=== PATIENT | female | born 1945 | race Two or more races ===

== ENCOUNTER 2017-07-23 19:37 | Emergency (ER) | payer MEDICARE, MEDICAID ==
[~2017-07-23] VITALS: Ht 172.7 cm; Wt 72.6 kg
[2017-07-23] MEDS ORDERED: ONDANSETRON HCL/PF 4 MG/2 ML VIAL ONE (19:49)
[2017-07-23] MEDS ORDERED: MORPHINE SULFATE INJ 4 MG/ML DISP.SYRIN ONE ×2 (19:49→22:18)
[2017-07-23] MEDS ORDERED: MORPHINE SULFATE INJ 2 MG/ML DISP.SYRIN IV ONE ×2 (20:00→22:00)
[2017-07-23] MEDS ORDERED: ONDANSETRON HCL/PF 4 MG/2 ML VIAL IVP ONE (20:00)
[2017-07-23] MEDS ORDERED: IV NS 0.9% 1,000 ML BAG IV ONE (20:00)
--- NOTE | 2017-07-23 20:00 | NUR ---
71 yo female bb ambulance from [facility], patient a/o x 3, assisted to er bed by emt. patient c/o lower abd pain, aching like non radiating with nausea. patient gownened, placed on bilingual administrative assistant. awaiting orders from provider, will continue to monitor
[2017-07-23 20:05] LABS: BASOPHILS % (AUTO) 0.4 % (0.0-2.0); EOSINOPHILS # (AUTO) 0.1 /CMM (0.0-0.7); EOSINOPHILS % (AUTO) 0.9 % (0.0-6.0); HEMATOCRIT 37 % (33-45); HEMOGLOBIN 13.4 g/dL (11.5-14.8); LYMPHOCYTES # (AUTO) 0.6 /CMM (0.8-4.8); LYMPHOCYTES % (AUTO) 9.8 % (20.0-44.0); MEAN CORPUSCULAR HEMOGLOBIN 33 PG (26.0-33.0); MEAN CORPUSCULAR HGB CONC 36 g/dl (31.0-36.0); MEAN CORPUSCULAR VOLUME 91 fL (82-100); MONOCYTES # (AUTO) 0.1 /CMM (0.1-1.30); MONOCYTES % (AUTO) 1.7 % (2.0-12.0); NEUTROPHILS # (AUTO) 5.4 /CMM (1.8-8.9); NEUTROPHILS % (AUTO) 87.2 % (43.0-81.0); PLATELET COUNT (AUTO) 145 /CMM (150-450); RDW COEFFICIENT OF VARIATION 13.1 (11.5-15.0); RED BLOOD CELL COUNT(AUTO) 4.07 MIL/uL (4.0-5.2); WHITE BLOOD COUNT (AUTO) 6.2 K/uL (4.3-11.0)
--- NOTE | 2017-07-23 20:05 | NUR ---
20g left hand iv started, blood sample obtained and sent to lab. medicated pt as ordered
[2017-07-23 20:15] LABS: CALCIUM, SERUM 9.3 mg/dL (8.5-10.1); CREATININE 0.6 mg/dL (0.6-1.3)
[2017-07-23 20:19] LABS: INR 0.92 (0.87-1.13)
[2017-07-23 20:20] LABS: ALBUMIN 3.9 g/dL (3.4-5.0); BILIRUBIN,DIRECT 0.1 mg/dL (0.0-0.2); BILIRUBIN,TOTAL 0.7 mg/dL (0.2-1.0); TOTAL PROTEIN, SERUM 7.3 g/dL (6.4-8.2)
--- NOTE | 2017-07-23 21:09 | NUR ---
VITAL SIGNS UPDATED.
--- NOTE | 2017-07-23 21:30 | NUR ---
ATTEMPTED TO PAGE DR BURT SEVERAL TIMES FOR CONSULT. LINE DOES NOT CONNECT TO PAGER.
--- NOTE | 2017-07-23 21:38 | NUR ---
PAGED DR THOMPSON FOR CARDIOTHORACIC SURGERY CONSULT
--- NOTE | 2017-07-23 22:00 | NUR ---
SPOKE WITH SILVIANO AT [facility] FOR HIGHER LEVEL OF CARE TRANSFER. PER SILVIANO SHE IS TRYING TO GET IN TOUCH WITH HER PHYSICIAN AND WILL CALL BACK.
--- NOTE | 2017-07-23 22:35 | NUR ---
CALLED AMANDA AT [facility] AND PRESENTED CASE FOR HIGHER LEVEL OF CARE TRANSFER FOR CARDIOTHORACIC SURGERY. TRANSFERRED CALL TO DR SCRUGGS AND WILL FAX FACE SHEET, IMAGING, AND LABS TO [phone].
--- NOTE | 2017-07-23 22:49 | NUR ---
PATIENT IS ACCEPTED AT [facility]. ACCEPTING MD DR SÁNCHEZ - [facility] WE ARE RESPONSIBLE FOR ARRANGING TRANSPORT PATIENT NEEDS AN NG TUBE PRIOR TO TRANSFER NUMBER FOR REPORT [id number]
--- NOTE | 2017-07-23 22:56 | NUR ---
CALLED YENNY FOR BLS TRANSPORT TO [facility]. ETA 45 MINUTES TO 1 HOUR.
--- NOTE | 2017-07-23 23:09 | NUR ---
REINALDO BRADY TOOK REPORT AT [facility]
[2017-07-23] MEDS ORDERED: LIDOCAINE VISCOUS 2% UD 15 ML UDC ONE (23:27)
[2017-07-23] MEDS ORDERED: LORAZEPAM INJ 2 MG/ML VIAL ONE (23:28)
[2017-07-23] MEDS ORDERED: LIDOCAINE VISCOUS 2% UD 15 ML UDC MM ONE (23:30)
[2017-07-23] MEDS ORDERED: LORAZEPAM INJ 2 MG/ML VIAL IV ONE (23:30)
--- NOTE | 2017-07-23 23:30 | NUR ---
PLACED [facility] TRIP# [id number] ON WILL CALL
--- NOTE | 2017-07-23 23:45 | NUR ---
SPOKE WITH AMANDA AT [facility] AND INFORMED THAT NG TUBE WAS UNABLE TO BE PLACED IN OUR ED. PER AMANDA, HE INFORMED DR SÁNCHEZ AND HE IS OK WITH PATIENT BEING SENT WITHOUT IT
--- NOTE | 2017-07-23 23:46 | NUR ---
CALLED YENNY TO REACTIVATE CALL. ETA 60 MINUTES.
--- NOTE | 2017-07-24 | NUR ---
ATTEMPTED NG WITHOUT SUCCESSFUL PLACEMENT, HAD OTHER RN ATTEMPT WITHOUT SUCCESSFUL PLACEMENT. CALLED MD SÁNCHEZ AT [facility], PER MD SÁNCHEZ, DO NOT ATTEMPT NG TUBE PLACEMENT ANYMORE, THEY WILL TRY AT [facility]
[2017-07-24] MEDS ORDERED: ONDANSETRON HCL/PF 4 MG/2 ML VIAL ONE (00:38)
[2017-07-24] MEDS ORDERED: MORPHINE SULFATE INJ 4 MG/ML DISP.SYRIN ONE (00:38)
[2017-07-24 00:43] VITALS: BP 124/64
--- NOTE | 2017-07-24 00:44 | NUR ---
MEDICATED PT ORDERED; 4MG MORPHINE, 4 MG ZOFRAN
--- NOTE | 2017-07-24 00:44 | NUR ---
PATIENT WAS TRANSPORTED BY EMT
[2017-07-24] MEDS ORDERED: ONDANSETRON HCL/PF 4 MG/2 ML VIAL IVP ONE (01:00)
[2017-07-24] MEDS ORDERED: MORPHINE SULFATE INJ 2 MG/ML DISP.SYRIN IV ONE (01:00)
== END 2017-07-24 00:46 | disposition short-term general hospital (02) ==
LOC: ER 19:39
DX: K31.89 Other diseases of stomach and duodenum (principal)
CPT/HCPCS: 36415; 71045-TC; 80048-TC; 80076-TC; 83605-TC; 83690-TC; 85025-TC; 85730-TC; 87040-TC; A4606; J2060; J2270; J2405; Z7610

== ENCOUNTER 2017-12-18 14:00 | Outpatient (CLI) | payer MEDICARE, MEDICAID | END 2017-12-18 23:59 | disposition home or self-care (01) | LOC: WOU 14:00 | PROVIDERS: ATTEND Surgery | DX: R10.9 Unspecified abdominal pain (principal); Z87.11 Personal history of peptic ulcer disease; Z79.899 Other long term (current) drug therapy; Z87.891 Personal history of nicotine dependence; K44.9 Diaphragmatic hernia without obstruction or gangrene | CPT/HCPCS: G0463 ==

== ENCOUNTER 2018-04-23 12:28 | Emergency (ER) | payer MEDICAID, MEDICARE ==
[~2018-04-23] VITALS: Ht 172.7 cm; Wt 77.1 kg
[2018-04-23] MEDS ORDERED: CLINDAMYCIN HCL 150 MG CAPSULE PO ONE ×2 (13:00→13:08)
--- NOTE | 2018-04-23 13:06 | NUR ---
ATTEMPTED TO PAGE DR FRAZIER FOR DR SCRUGGS. PER DR FRAZIER'S OFFICE DR GASTELUM IS GEODETIC ENGINEER FOR DR FRAZIER
--- NOTE | 2018-04-23 14:06 | NUR ---
CALLED YENNY TO ARRANGE TRANSPORTATION TO [facility] TRIP# [id number] SPOKE WITH PHIL HATCH 1 HOUR
--- NOTE | 2018-04-23 14:08 | NUR ---
Pt for discharge- ACI given verbalizes understanding. Home to care facility via basic transport in stable condition
[2018-04-23 14:10] VITALS: BP 124/70
--- NOTE | 2018-04-23 15:11 | NUR ---
pt discharged to care facility- [facility] transported by [facility] unit 215 Report to Kulwinder EMT status quo No obvious distress, No acute changes
== END 2018-04-23 15:10 | disposition home or self-care (01) ==
LOC: ER 12:35
DX: S80.811A Abrasion, right lower leg, initial encounter (principal); L03.115 Cellulitis of right lower limb; F31.9 Bipolar disorder, unspecified; X58.XXXA Exposure to other specified factors, initial encounter; Y93.89 Activity, other specified; Y92.89 Other specified places as the place of occurrence of the external cause; Y99.8 Other external cause status
CPT/HCPCS: 73590; 99284; A4606; Z7610

== ENCOUNTER 2018-10-04 10:38 | Emergency (ER) | payer MEDICARE, OTHER ==
[~2018-10-04] VITALS: Ht 180.3 cm; Wt 93.0 kg
--- NOTE | 2018-10-04 11:30 | NUR ---
GRECIA AVENDAÑO [facility] FOR LLE PAIN/NUMBNESS X TODAY. HX SCIATICA PER REPORT FREQUENT FALL THIS WEEK. PT AAOX3, VSS. DENIES CALDERON, DIZZINESS, N/V, CP, SOB @ THIS TIME. AWAITING EVAL BY UDAY/PA. WILL CONT TO MONITOR.
[2018-10-04 12:22] LABS: BASOPHILS % (AUTO) 0.4 % (0.0-2.0); EOSINOPHILS % (AUTO) 1.8 % (0.0-6.0); HEMATOCRIT 37 % (33-45); HEMOGLOBIN 12.7 g/dL (11.5-14.8); LYMPHOCYTES # (AUTO) 1.1 /CMM (0.8-4.8); LYMPHOCYTES % (AUTO) 21.2 % (20.0-44.0); MEAN CORPUSCULAR HGB CONC 34 g/dl (31.0-36.0); MEAN CORPUSCULAR VOLUME 90 fL (82-100); MONOCYTES # (AUTO) 0.2 /CMM (0.1-1.30); MONOCYTES % (AUTO) 4.8 % (2.0-12.0); NEUTROPHILS # (AUTO) 3.7 /CMM (1.8-8.9); NEUTROPHILS % (AUTO) 71.8 % (43.0-81.0); PLATELET COUNT (AUTO) 143 /CMM (150-450); RED BLOOD CELL COUNT(AUTO) 4.14 MIL/uL (4.0-5.2); WHITE BLOOD COUNT (AUTO) 5.1 K/uL (4.3-11.0)
[2018-10-04 12:31] LABS: CALCIUM, SERUM 8.8 mg/dL (8.5-10.1); CARBON DIOXIDE 28 mmol/L (21-32); CHLORIDE 105 mmol/L (98-107); CREATININE 0.6 mg/dL (0.6-1.3); GLUCOSE 94 mg/dL (74-106); POTASSIUM 3.5 mmol/L (3.5-5.1); SODIUM SERUM 141 mmol/L (136-145); UREA NITROGEN, BLOOD 12 mg/dL (7-18)
--- NOTE | 2018-10-04 13:40 | NUR ---
PT BACK FROM CT, STABLE RR EVEN & UNLABORED, NAD NOTED @ THIS TIME & WILL CONT TO MONITOR.
--- NOTE | 2018-10-04 13:55 | NUR ---
DR KARIN ESPINOZA
--- NOTE | 2018-10-04 14:00 | NUR ---
PT AMB TO BR WITH ASSISTANCE, PT JASON WELL.
--- NOTE | 2018-10-04 14:16 | NUR ---
MANAGER HOTEL AT BEDSIDE
--- NOTE | 2018-10-04 14:34 | NUR ---
PAGED DR. SHANNON FRAZIER AGAIN
--- NOTE | 2018-10-04 15:30 | NUR ---
PT STABLE, NAD NOTED @ THIS TIME. WILL CONT TO MONITOR.
--- NOTE | 2018-10-04 17:15 | NUR ---
SET UP BLS RIG WITH AMADA FOR TRANSPORT TO [facility] - TRIP# [id number]
[2018-10-04 19:07] VITALS: BP 124/60
== END 2018-10-04 19:08 ==
LOC: ER 10:40
DX: M25.552 Pain in left hip (principal); F31.9 Bipolar disorder, unspecified; M54.32 Sciatica, left side; I65.23 Occlusion and stenosis of bilateral carotid arteries
CPT/HCPCS: 36415; 70450-TC; 71045-TC; 73502; 80048-TC; 82962-TC; 84484-TC; 85025-TC; 85730-TC

== ENCOUNTER 2018-10-11 10:44 | Emergency (ER) | payer MEDICARE, OTHER ==
[~2018-10-11] VITALS: Ht 172.7 cm; Wt 90.7 kg
--- NOTE | 2018-10-11 10:45 | NUR ---
PT BIB PA [facility] FOR DIARRHEA X 3 DAYS, PER REPORT SENT BY PMD, PT AAOX4, NOT IN RESPIRATORY DISTRESS, V/S STABLE, HOOKED TO MONITOR, KEPT RESTED AND COMFORTABLE.
[2018-10-11] MEDS ORDERED: IV NS 0.9% 1,000 ML BAG IV ONE (11:00)
--- NOTE | 2018-10-11 11:00 | NUR ---
SEEN AND EXAMINED BY DR. RODAS.
[2018-10-11] MEDS ORDERED: DULO60CA45 PO (11:06)
[2018-10-11] MEDS ORDERED: HYDR-4354 PO (11:06)
[2018-10-11] MEDS ORDERED: SERT100T PO (11:06)
[2018-10-11] MEDS ORDERED: CYCL5TAB PO (11:06)
[2018-10-11] MEDS ORDERED: LEVE250T2 PO (11:06)
[2018-10-11] MEDS ORDERED: ERGO500040 PO (11:06)
[2018-10-11] MEDS ORDERED: DONE10TA44 PO (11:06)
[2018-10-11] MEDS ORDERED: DICL100G16 TP (11:06)
[2018-10-11] MEDS ORDERED: GABA-534 PO (11:06)
[2018-10-11] MEDS ORDERED: IPRA42SP NS (11:06)
[2018-10-11] MEDS ORDERED: FENT1PAT6 TD (11:06)
--- NOTE | 2018-10-11 11:10 | NUR ---
PT IV LINE ESTABLISHED, LABS DRAWNED AND SENT TO LAB.
[2018-10-11 11:21] LABS: BASOPHILS % (AUTO) 0.3 % (0.0-2.0); EOSINOPHILS % (AUTO) 2.1 % (0.0-6.0); HEMATOCRIT 37 % (33-45); HEMOGLOBIN 12.8 g/dL (11.5-14.8); LYMPHOCYTES # (AUTO) 0.9 /CMM (0.8-4.8); LYMPHOCYTES % (AUTO) 17.3 % (20.0-44.0); MEAN CORPUSCULAR HGB CONC 35 g/dl (31.0-36.0); MEAN CORPUSCULAR VOLUME 89 fL (82-100); MONOCYTES # (AUTO) 0.2 /CMM (0.1-1.30); MONOCYTES % (AUTO) 4.2 % (2.0-12.0); NEUTROPHILS # (AUTO) 4.1 /CMM (1.8-8.9); NEUTROPHILS % (AUTO) 76.1 % (43.0-81.0); PLATELET COUNT (AUTO) 137 /CMM (150-450); RED BLOOD CELL COUNT(AUTO) 4.14 MIL/uL (4.0-5.2); WHITE BLOOD COUNT (AUTO) 5.4 K/uL (4.3-11.0)
[2018-10-11 11:34] LABS: CALCIUM, SERUM 9.1 mg/dL (8.5-10.1); CARBON DIOXIDE 25 mmol/L (21-32); CHLORIDE 107 mmol/L (98-107); CREATININE 0.6 mg/dL (0.6-1.3); GLUCOSE 105 mg/dL (74-106); POTASSIUM 4.1 mmol/L (3.5-5.1); SODIUM SERUM 141 mmol/L (136-145); UREA NITROGEN, BLOOD 10 mg/dL (7-18)
[2018-10-11 11:40] LABS: ALANINE AMINOTRANSFERASE 16 U/L (12-78); ALBUMIN 4.1 g/dL (3.4-5.0); ALKALINE PHOSPHATASE 152 U/L (46-116); ASPARTATE AMINOTRANSFERASE 15 U/L (15-37); BILIRUBIN,DIRECT 0.1 mg/dL (0.0-0.2); BILIRUBIN,TOTAL 0.5 mg/dL (0.2-1.0); LIPASE 54 U/L (73-393); TOTAL PROTEIN, SERUM 7.4 g/dL (6.4-8.2)
--- NOTE | 2018-10-11 12:12 | NUR ---
CALLED OFFICE OF DR FRAZIER, KARIN PAGED.
--- NOTE | 2018-10-11 13:08 | NUR ---
AWAITING AMBULACE SOFT BOARDER TO TRANSFER BACK TO FACILITY.
--- NOTE | 2018-10-11 13:12 | NUR ---
ANISHA HATCH 1449 TRIP#[id number]
--- NOTE | 2018-10-11 13:42 | NUR ---
CHANGED DIAPER, KEPT RESTED AND COMFORTABLE, AWAITING AMBULANCE FOR TRANSFER BACK TO FACILITY.
[2018-10-11 15:33] VITALS: BP 124/62
== END 2018-10-11 15:34 | disposition home or self-care (01) ==
LOC: ER 10:49
DX: K58.0 Irritable bowel syndrome with diarrhea (principal); F31.9 Bipolar disorder, unspecified
CPT/HCPCS: 36415; 80048; 80076; 83690; 85025; 96360; 99283; J7030

== ENCOUNTER 2018-12-07 10:23 | Emergency (ER) | payer MEDICARE, OTHER ==
[~2018-12-07] VITALS: Ht 165.1 cm; Wt 65.8 kg
[~2018-12-07 10:23] MED LIST: CYCL5TAB PO; DICL100G16 TP; DONE10TA44 PO; DULO60CA45 PO; ERGO500040 PO; FENT1PAT6 TD; GABA-534 PO; HYDR-4354 PO; IPRA42SP NS; LEVE250T2 PO; SERT100T PO
[2018-12-07] MEDS ORDERED: FENT1PAT8 TD (10:36)
[2018-12-07] MEDS ORDERED: OMEP20CA11 PO (10:36)
--- NOTE | 2018-12-07 10:37 | NUR ---
aaox3, BIBPA from assisted living c/o syncopal episode unwitnessed last night, hematoma on the left forehead noted. RR is even and unlabored with NAD noted. Skin is warm and dry. Awaiting md for eval.
[2018-12-07 11:00] LABS: BASOPHILS % (AUTO) 0.6 % (0.0-2.0); EOSINOPHILS % (AUTO) 2.1 % (0.0-6.0); HEMATOCRIT 37 % (33-45); HEMOGLOBIN 13.1 g/dL (11.5-14.8); LYMPHOCYTES % (AUTO) 21.6 % (20.0-44.0); MEAN CORPUSCULAR HGB CONC 35 g/dl (31.0-36.0); MEAN CORPUSCULAR VOLUME 88 fL (82-100); MONOCYTES # (AUTO) 0.3 /CMM (0.1-1.30); MONOCYTES % (AUTO) 5.6 % (2.0-12.0); NEUTROPHILS # (AUTO) 3.3 /CMM (1.8-8.9); NEUTROPHILS % (AUTO) 70.1 % (43.0-81.0); PLATELET COUNT (AUTO) 145 /CMM (150-450); RED BLOOD CELL COUNT(AUTO) 4.24 MIL/uL (4.0-5.2); WHITE BLOOD COUNT (AUTO) 4.7 K/uL (4.3-11.0)
[2018-12-07 11:01] LABS: CARBON DIOXIDE 27 mmol/L (21-32); CHLORIDE 105 mmol/L (98-107); CREATININE 0.6 mg/dL (0.6-1.3); GLUCOSE 88 mg/dL (74-106); POTASSIUM 4.1 mmol/L (3.5-5.1); SODIUM SERUM 143 mmol/L (136-145); UREA NITROGEN, BLOOD 8 mg/dL (7-18)
[2018-12-07 11:07] LABS: ALANINE AMINOTRANSFERASE 19 U/L (12-78); ALBUMIN 4.1 g/dL (3.4-5.0); ALKALINE PHOSPHATASE 148 U/L (46-116); ASPARTATE AMINOTRANSFERASE 30 U/L (15-37); BILIRUBIN,DIRECT 0.1 mg/dL (0.0-0.2); BILIRUBIN,TOTAL 0.9 mg/dL (0.2-1.0); CALCIUM, SERUM 9.2 mg/dL (8.5-10.1); TOTAL PROTEIN, SERUM 7.4 g/dL (6.4-8.2)
--- NOTE | 2018-12-07 11:20 | NUR ---
Patient transported for CT.
--- NOTE | 2018-12-07 12:05 | NUR ---
CALLED FOR BLS TRANSPORT BACK TO [facility], ETA OF 1230, TRIP # [id number]
--- NOTE | 2018-12-07 12:18 | NUR ---
Patient is resting comfortably in bed with eyes closed. Easily aroused. VSS
--- NOTE | 2018-12-07 12:46 | NUR ---
IV removed. Catheter intact and site benign. Pressure and 4x4 applied to site. No bleeding noted.Patient discharged to home in stable condition. Written and verbal after care instructions given. Patient verbalizes understanding of instruction.
[2018-12-07 12:48] VITALS: BP 143/73
== END 2018-12-07 12:49 | disposition home or self-care (01) ==
LOC: ER 10:24
DX: S00.83XA Contusion of other part of head, initial encounter (principal); R60.0 Localized edema; R51 Headache; G40.909 Epilepsy, unspecified, not intractable, without status epilepticus; G93.40 Encephalopathy, unspecified; F31.9 Bipolar disorder, unspecified; Z88.9 Allergy status to unspecified drugs, medicaments and biological substances; W18.39XA Other fall on same level, initial encounter; Y93.89 Activity, other specified; Y92.89 Other specified places as the place of occurrence of the external cause; Y99.8 Other external cause status
CPT/HCPCS: 36415; 70450-TC; 71045-TC; 80048-TC; 80076-TC; 84484-TC; 85025-TC

== ENCOUNTER 2019-01-10 18:49 | Inpatient (IN) | payer MEDICARE, OTHER ==
[~2019-01-10] VITALS: Ht 172.7 cm; Wt 82.6 kg
[~2019-01-10 18:49] MED LIST changes: -DICL100G16 TP; -FENT1PAT6 TD; +FENT1PAT8 TD; +OMEP20CA11 PO
--- NOTE | 2019-01-10 19:05 | NUR ---
[facility] FOR MED EVAL. PER REPORT, NOT EATING X 3-4 DAYS. PATIENT A/OX1-2, CONFUSED, BREATHING EVEN AND UNLABORED, NO SOB NOTED. DENIES PAIN AT THIS TIME. ATTACHED ON THE MONITOR.
--- NOTE | 2019-01-10 19:20 | NUR ---
LAB DRAWN AND SENT TO LAB
[2019-01-10] MEDS ORDERED: IV NS 0.9% 1,000 ML BAG IV ONE (19:30)
[2019-01-10 19:32] LABS: BASOPHILS % (AUTO) 0.3 % (0.0-2.0); EOSINOPHILS % (AUTO) 0.4 % (0.0-6.0); HEMATOCRIT 36 % (33-45); HEMOGLOBIN 12.3 g/dL (11.5-14.8); LYMPHOCYTES % (AUTO) 14.6 % (20.0-44.0); MEAN CORPUSCULAR HGB CONC 35 g/dl (31.0-36.0); MEAN CORPUSCULAR VOLUME 88 fL (82-100); MONOCYTES # (AUTO) 0.5 /CMM (0.1-1.30); MONOCYTES % (AUTO) 7.9 % (2.0-12.0); NEUTROPHILS # (AUTO) 5.1 /CMM (1.8-8.9); NEUTROPHILS % (AUTO) 76.8 % (43.0-81.0); PLATELET COUNT (AUTO) 110 /CMM (150-450); RED BLOOD CELL COUNT(AUTO) 4.05 MIL/uL (4.0-5.2); WHITE BLOOD COUNT (AUTO) 6.6 K/uL (4.3-11.0)
--- NOTE | 2019-01-10 19:34 | NUR ---
ENDORSED TO ED FOR ZACH.
[2019-01-10 19:40] LABS: CALCIUM, SERUM 8.9 mg/dL (8.5-10.1); CARBON DIOXIDE 26 mmol/L (21-32); CHLORIDE 100 mmol/L (98-107); CREATININE 0.7 mg/dL (0.6-1.3); GLUCOSE 115 mg/dL (74-106); POTASSIUM 3.5 mmol/L (3.5-5.1); SODIUM SERUM 136 mmol/L (136-145); UREA NITROGEN, BLOOD 14 mg/dL (7-18)
[2019-01-10 19:45] LABS: ALANINE AMINOTRANSFERASE 13 U/L (12-78); ALBUMIN 3.8 g/dL (3.4-5.0); ALKALINE PHOSPHATASE 111 U/L (46-116); ASPARTATE AMINOTRANSFERASE 14 U/L (15-37); BILIRUBIN,DIRECT 0.1 mg/dL (0.0-0.2); BILIRUBIN,TOTAL 0.9 mg/dL (0.2-1.0); TOTAL PROTEIN, SERUM 7.4 g/dL (6.4-8.2)
--- NOTE | 2019-01-10 19:49 | NUR ---
BETITO SPARKS AT BEDSIDE TO RE-EVAL PT.
--- NOTE | 2019-01-10 19:53 | NUR ---
PT TRANSPORTED TO RADIOLOGY FOR CT HEAD.
--- NOTE | 2019-01-10 20:06 | NUR ---
PT BACK FROM RADIOLOGY. PENDING CT HEAD RESULT.
--- NOTE | 2019-01-10 22:18 | NUR ---
BETITO SPARKS TALKING TO DR. FRAZIER REGARDING PT.
--- NOTE | 2019-01-10 22:18 | NUR ---
ART ON THE WAY
[2019-01-10 23:29] LABS: ALCOHOL, BLOOD < 3 mg/dL (0-0)
[2019-01-10 23:45] LABS: APPEARANCE,URINE Slightly Cloudy (CLEAR); BILIRUBIN,URINE Negative (NEGATIVE); BLOOD, URINE Moderate Ery/uL (NEGATIVE); COLOR,URINE Dark (YELLOW); KETONES,URINE Negative (NEGATIVE); LEUKOCYTE ESTERASE ,URINE Small (NEGATIVE); NITRITE, URINE Positive (NEGATIVE); PROTEIN,URINE 30 mg/dl (NEGATIVE); UGLUCOSE Negative (NEGATIVE)
[2019-01-11 00:06] LABS: ACETAMINOPHEN 0 ug/ml (10-30); SALICYLATE 0.2 mg/dL (2.8-20.0)
--- NOTE | 2019-01-11 00:07 | NUR ---
TAVARES HAILEW AT BEDSIDE TO CHRISTOPHER VAIL.
[2019-01-11 00:12] LABS: BACTERIA,URINE Many /HPF (None Seen); SQUAMOUS EPITHELIAL CELL,UR Few /HPF (None Seen); WBC,URINE TOO NUMEROUS TO COUN /HPF (0-3)
--- NOTE | 2019-01-11 00:47 | NUR ---
RAINA CALLED TO OCULAR PATHOLOGISTJOSE ANTONIO BURTON. WILL TRANSPORT PT TO ROOM 212-B
--- NOTE | 2019-01-11 01:40 | NUR ---
ADMISSION NOTES: ADMITTED NOTES: ADMITTED THIS 73 Y/O FEMALE. PATIENT ADMITTED FROM [facility] ER INITIALLY FROM [facility]. PT IS ON 5150 HOLD FOR GRAVELY DISABLED. PER HOLD PT IS NOT EATING NON COMPLIANT WITH MEDICATION INCREASED CONFUSION HALLUCINATING. PT IS ANXIOUS INCREASE HALLUCINATIONS. PT'S JUDGEMENT IMPAIRED. PATIENT IS NOT ABLE TO PROVIDE FOR HER FOOD AND DETENTION OR CLOTHING DUE TO MENTAL DISORDER AND [facility] IS UNABLE TO PROVIDE CARE DUE TO PATIENT'S NON COMPLIANCE AND MENTAL STATUS. UPON FACE TO FACE ASSESSMENT PATIENT IS A&O X 2 DISORGNIZED, CONFUSED, ANXIOUS, DISHEVELED, V/S MD ENRIQUE AWARE AND NOTIFIED OF THE ADMISSION, , BELONGINGS CONTRABAND WERE DONE SKIN ASSESSMENT DONE PICTURES TAKEN PLACED IN THE CHART. PT REFUSED TO SIGN THE CONSENT FORMS. PROVIDE THE PT. WITH HANDBOOK AND MEDICATIONS GUIDE, ENVIRONMENTAL SAFETY CHECK DONE. NO CONTRABAND FOUND. ENCOURAGED PT. VERBALIZED FEELINGS AND CONCERNS TO STAFF. ORIENT TO UNIT POLICY. NO ACUTE DISTRESS NOTED DENIES ANY PAIN AT THIS TIME. ALL NEEDS ATTENDED AND ANTICIPATED. WILL CONTINUE TO MONITOR FOR [id number] FOR SAFETY AND BEHAVIOR.
[2019-01-11] MEDS ORDERED: QUETIAPINE FUMARATE 25 MG TABLET PO PRN ×2 (02:00→19:30)
[2019-01-11] MEDS ORDERED: ACETAMINOPHEN 325 MG TABLET PO PRN (02:00)
[2019-01-11] MEDS ORDERED: MAG HYDROX/AL HYDROX/SIMETH 30 ML UDC PO PRN (02:00)
[2019-01-11] MEDS ORDERED: MAGNESIUM HYDROXIDE 30 ML UDC PO PRN (02:00)
[2019-01-11] MEDS ORDERED: ZOLPIDEM TARTRATE 5 MG TABLET PO PRN (02:00)
[2019-01-11 03:12] VITALS: BP 150/67
[2019-01-11] MEDS ORDERED: DOCU50LI PO (07:33)
[2019-01-11] MEDS ORDERED: QUET25TA PO (07:33)
[2019-01-11] MEDS ORDERED: HYDR-3974 PO (07:33)
[2019-01-11] MEDS ORDERED: DIVA-76 PO (07:33)
--- NOTE | 2019-01-11 07:40 | NUR ---
RN INITIAL NOTES PT IN BED AWAKE AND ALERT, DENIES PAIN. SAFETY ENSURED; NO BEHAVIORAL CHANGES AT THIS TIME
[2019-01-11 08:00] VITALS: BP 105/70
[2019-01-11] MEDS ORDERED: CYCLOBENZAPRINE 10 MG TABLET PO PRN ×2 (10:30→11:00)
[2019-01-11] MEDS ORDERED: MISCELLANEOUS MED 1 EA EA XX ONE (10:30)
[2019-01-11] MEDS ORDERED: FENTANYL TD PATCH (75MCG/HR) 75 MCG/HR PATCH.TD72 TD SCH (10:30)
[2019-01-11] MEDS: LEVETIRACETAM (250 MG) 250 MG TABLET PO SCH ×2 (12:03→16:18)
[2019-01-11] MEDS: DOCUSATE SODIUM 250 MG CAPSULE PO SCH (12:03)
--- NOTE | 2019-01-11 13:00 | NUR ---
SW called [facility] ([phone]) and spoke to their security coordinator, MARILU, who stated that the pt can return to their facility.
--- NOTE | 2019-01-11 13:05 | NUR ---
DAVID called the pts brother, Sage ([phone]), and informed him about the pts treatment plan and initial discharge plan to return to the shelter facility. He stated that he would like to be informed of when that happens.
--- NOTE | 2019-01-11 13:12 | NUR ---
Initial Discharge Plan: Pt currently resides at [facility] located at [address] [place] [address]; ([phone]). Per pt, she would like to return. SW will work with the pt and the MD regarding appropriate discharge planning. SW will form a safe and proper discharge plan.
[2019-01-11] MEDS: GABAPENTIN 300 MG CAPSULE PO SCH ×2 (14:26→16:18)
--- NOTE | 2019-01-11 14:26 | NUR ---
GROUP NOTE: SW prompted pt to attend group discussing the topic of support systems, but pt unable to participate in group.
[2019-01-11 16:00] VITALS: BP 131/77
[2019-01-11 20:17] VITALS: BP 130/90
--- NOTE | 2019-01-12 03:52 | NUR ---
PATIENT REFUSED TO TAKE QUETIAPINE 12.5 MG. STATED, " THAT'S A POISON."
--- NOTE | 2019-01-12 04:06 | NUR ---
OFFERED SEROQUEL 12.5 MG AGAIN, PATIENT CONFUSED, STATED," YOU ARE NEXT, WHAT KIND OF GAME ARE YOU PLAYING?, NO WAY".
--- NOTE | 2019-01-12 04:24 | NUR ---
PATIENT CONFUSED, DISORIENTED, AGITATED, NAKED KEPT GETTING OUT OF BED, VERY UNSTEADY ON BOTH FEET. ATTEMPTED TO ADMINISTER SEROQUEL FOR THE THIRD TIME. CRUSHED MEDICATION AND MIXED WITH VANILLA PUDDING. PATIENT TOOK MEDICATION THIS TIME.
[2019-01-12 06:41] LABS: BASOPHILS % (AUTO) 0.1 % (0.0-2.0); EOSINOPHILS % (AUTO) 0.7 % (0.0-6.0); HEMATOCRIT 34 % (33-45); HEMOGLOBIN 11.9 g/dL (11.5-14.8); LYMPHOCYTES # (AUTO) 0.6 /CMM (0.8-4.8); LYMPHOCYTES % (AUTO) 13.4 % (20.0-44.0); MEAN CORPUSCULAR HGB CONC 35 g/dl (31.0-36.0); MEAN CORPUSCULAR VOLUME 88 fL (82-100); MONOCYTES # (AUTO) 0.3 /CMM (0.1-1.30); MONOCYTES % (AUTO) 7.1 % (2.0-12.0); NEUTROPHILS # (AUTO) 3.7 /CMM (1.8-8.9); NEUTROPHILS % (AUTO) 78.7 % (43.0-81.0); PLATELET COUNT (AUTO) 107 /CMM (150-450); RED BLOOD CELL COUNT(AUTO) 3.86 MIL/uL (4.0-5.2); WHITE BLOOD COUNT (AUTO) 4.8 K/uL (4.3-11.0)
[2019-01-12 06:55] LABS: ALANINE AMINOTRANSFERASE 15 U/L (12-78); ALBUMIN 3.4 g/dL (3.4-5.0); ALKALINE PHOSPHATASE 93 U/L (46-116); ASPARTATE AMINOTRANSFERASE 11 U/L (15-37); BILIRUBIN,TOTAL 0.9 mg/dL (0.2-1.0); CALCIUM, SERUM 8.6 mg/dL (8.5-10.1); CARBON DIOXIDE 28 mmol/L (21-32); CHLORIDE 103 mmol/L (98-107); CREATININE 0.6 mg/dL (0.6-1.3); GLUCOSE 94 mg/dL (74-106); POTASSIUM 3.4 mmol/L (3.5-5.1); SODIUM SERUM 141 mmol/L (136-145); TOTAL PROTEIN, SERUM 6.9 g/dL (6.4-8.2); UREA NITROGEN, BLOOD 6 mg/dL (7-18)
[2019-01-12 07:01] LABS: CHOLESTEROL 146 mg/dL (<200); HDL CHOLESTEROL 28 mg/dL (40-60); LDL 99 mg/dL (0-99); TRIGLYCERIDES 85 mg/dL (30-150)
[2019-01-12 08:00] VITALS: BP 123/66
[2019-01-12] MEDS: DIVALPROEX SODIUM 125 MG TABLET.DR PO SCH ×3 (08:44→21:33)
[2019-01-12] MEDS: GABAPENTIN 300 MG CAPSULE PO SCH ×3 (08:44→16:48)
[2019-01-12] MEDS: LEVETIRACETAM (250 MG) 250 MG TABLET PO SCH ×2 (08:45→16:47)
[2019-01-12] MEDS: DOCUSATE SODIUM 250 MG CAPSULE PO SCH (08:45)
[2019-01-12] MEDS ORDERED: POTASSIUM CHLORIDE 20 MEQ TAB.PRT.SR PO SCH (10:30)
[2019-01-12] MEDS ORDERED: [UNRECOGNIZED DRUG - OTHER] XX PRN (12:00)
[2019-01-12 16:00] VITALS: BP 127/81
--- NOTE | 2019-01-12 19:01 | NUR ---
Handoff to JOSE ANTONIO Villarreal. Rolando Cohen RN
[2019-01-12 20:00] VITALS: BP 131/63
[2019-01-12] MEDS: QUETIAPINE FUMARATE 25 MG TABLET PO SCH (21:33)
[2019-01-13 06:42] LABS: CALCIUM, SERUM 8.4 mg/dL (8.5-10.1); CARBON DIOXIDE 24 mmol/L (21-32); CHLORIDE 104 mmol/L (98-107); CREATININE 0.6 mg/dL (0.6-1.3); GLUCOSE 100 mg/dL (74-106); POTASSIUM 3.5 mmol/L (3.5-5.1); SODIUM SERUM 140 mmol/L (136-145); UREA NITROGEN, BLOOD 7 mg/dL (7-18)
[2019-01-13 08:00] VITALS: BP 133/67
[2019-01-13] MEDS: GABAPENTIN 300 MG CAPSULE PO SCH ×3 (08:56→16:43)
[2019-01-13] MEDS: DIVALPROEX SODIUM 125 MG TABLET.DR PO SCH ×3 (08:56→21:46)
[2019-01-13] MEDS: DOCUSATE SODIUM 250 MG CAPSULE PO SCH (08:56)
[2019-01-13] MEDS: LEVETIRACETAM (250 MG) 250 MG TABLET PO SCH ×2 (08:56→16:43)
[2019-01-13 16:03] VITALS: BP 133/70
--- NOTE | 2019-01-13 17:21 | NUR ---
1700 Dr Hernandez made aware of positive urine culture , he said patient is asymptomatic and doesn't need antibiotic , he also spoke to charge nurse
[2019-01-13 20:07] VITALS: BP 122/69
[2019-01-13] MEDS: SENNOSIDES 8.6 MG TABLET PO SCH (21:44)
[2019-01-13] MEDS: QUETIAPINE FUMARATE 25 MG TABLET PO SCH (21:45)
[2019-01-14 08:00] VITALS: BP 120/61
[2019-01-14] MEDS: LEVETIRACETAM (250 MG) 250 MG TABLET PO SCH ×2 (08:11→16:06)
[2019-01-14] MEDS: GABAPENTIN 300 MG CAPSULE PO SCH ×3 (08:11→16:06)
[2019-01-14] MEDS: DIVALPROEX SODIUM 125 MG TABLET.DR PO SCH ×3 (08:11→20:30)
[2019-01-14] MEDS: QUETIAPINE FUMARATE 25 MG TABLET PO SCH ×2 (08:16→20:30)
--- NOTE | 2019-01-14 12:16 | NUR ---
RN NOTE: PATIENT REFUSED 1300 MEDS
--- NOTE | 2019-01-14 15:51 | NUR ---
GROUP NOTE: SW prompted pt to attend group discussing the topic of personal strengths and coping skills, but pt was sleeping and not easily aroused.
[2019-01-14 16:00] VITALS: BP 115/68
[2019-01-14 19:52] VITALS: BP 123/80
--- NOTE | 2019-01-14 20:31 | NUR ---
TOOK HER DEPAKOTE DOSE AND SEROQUEL TONIGHT. ASKED FOR APPLE JUICE AND GIVEN PER HER REQUEST.
[2019-01-14] MEDS: SENNOSIDES 8.6 MG TABLET PO SCH (21:30)
[2019-01-15 07:09] LABS: VALPROIC ACID 72 ug/mL (50-100)
[2019-01-15 07:14] LABS: ALANINE AMINOTRANSFERASE 15 U/L (12-78); ASPARTATE AMINOTRANSFERASE 12 U/L (15-37)
[2019-01-15 07:16] LABS: SERUM AMMONIA 10 umol/L (11-32)
[2019-01-15 08:00] VITALS: BP 113/62
[2019-01-15] MEDS: GABAPENTIN 300 MG CAPSULE PO SCH ×3 (08:08→16:22)
[2019-01-15] MEDS: QUETIAPINE FUMARATE 25 MG TABLET PO SCH ×2 (08:08→21:38)
[2019-01-15] MEDS: LEVETIRACETAM (250 MG) 250 MG TABLET PO SCH ×2 (08:08→16:22)
[2019-01-15] MEDS: DIVALPROEX SODIUM 125 MG TABLET.DR PO SCH ×3 (08:09→21:38)
--- NOTE | 2019-01-15 10:23 | NUR ---
RN NOTE: PATIENT IS COMPLAINING OF SEASONAL ALLERGIES. CONTACTED DR. FRAZIER, LEFT MESSAGE WITH ISAC, AWAITING CALL BACK.
--- NOTE | 2019-01-15 15:29 | NUR ---
GROUP NOTE: SW prompted pt to attend group on 01/15/19 at 2:00pm discussing the topic of goal setting for while they are in the hospital and after discharge, but pt unable to participate in group.
[2019-01-15 16:00] VITALS: BP 129/73
--- NOTE | 2019-01-15 19:28 | NUR ---
GPS RN NOTE, RECEIVED PATIENT AWAKE AND IN BED, NO S/S OR COMPLAINTS OF PAIN AT THIS TIME. PATIENT IS DISPLAYING NO S/S OF APPARENT DISTRESS AT THIS TIME. PATIENT BREATHING IS UNLABORED WITH EQUAL RISE AND FALL OF THE CHEST. PATIENT IS ALERT AND ORIENTED X 1-2 ON ROOM AIR WITH A SPO2 OF 97 %. PATIENT IS MED COMPLAINT, CONFUSED AT TIMES, DISORGANIZED, ANXIOUS, COOPERATIVE, PARANOID, AND NEEDS REORIENTATION. PATIENT DENIES SUICIDE AND HOMICIDAL IDEATIONS AT THIS TIME. PATIENT ASSISTED WITH TURNING AND REPOSITIONING Q2HR AND PRN FOR COMFORT AND CIRCULATION. PATIENT HAS NO NEEDS AT THIS TIME. PATIENT EDUCATED ON THE USE OF THE CALL DURON. PATIENT BED SIDE RAILS ARE UP X 2 FOR SAFETY, BED IS LOCKED, AND LOW WILL CONTINUE TO MONITOR AND MAINTAIN SAFETY.
[2019-01-15 20:14] VITALS: BP 114/61
[2019-01-15] MEDS: SENNOSIDES 8.6 MG TABLET PO SCH (21:38)
[2019-01-16 08:00] VITALS: BP 121/62
[2019-01-16] MEDS: GABAPENTIN 300 MG CAPSULE PO SCH ×3 (08:29→16:12)
[2019-01-16] MEDS: LEVETIRACETAM (250 MG) 250 MG TABLET PO SCH ×2 (08:29→16:12)
[2019-01-16] MEDS: QUETIAPINE FUMARATE 25 MG TABLET PO SCH ×2 (08:29→21:26)
[2019-01-16] MEDS: DIVALPROEX SODIUM 125 MG TABLET.DR PO SCH ×3 (08:29→21:25)
[2019-01-16] MEDS: LORATADINE 10 MG TABLET PO SCH (08:29)
--- NOTE | 2019-01-16 13:24 | NUR ---
GROUP NOTE: SW prompted pt to attend group on 01/16/19 at 12:30pm discussing stress management techniques for while they are in the hospital and after discharge, but pt was sleeping and not easily aroused.
[2019-01-16 16:43] VITALS: BP 108/58
[2019-01-16 20:00] VITALS: BP 124/70
[2019-01-16] MEDS: SENNOSIDES 8.6 MG TABLET PO SCH (21:26)
[2019-01-17] MEDS: HYDROCODONE/APAP 5/325MG 1 EACH TABLET PO PRN ×2 (06:14→10:17)
[2019-01-17 08:00] VITALS: BP 101/55
[2019-01-17] MEDS: GABAPENTIN 300 MG CAPSULE PO SCH ×4 (08:07→16:38)
[2019-01-17] MEDS: LORATADINE 10 MG TABLET PO SCH (08:07)
[2019-01-17] MEDS: LEVETIRACETAM (250 MG) 250 MG TABLET PO SCH ×2 (08:07→16:38)
[2019-01-17] MEDS: DIVALPROEX SODIUM 125 MG TABLET.DR PO SCH ×3 (08:07→21:54)
[2019-01-17] MEDS: QUETIAPINE FUMARATE 25 MG TABLET PO SCH ×4 (08:09→21:54)
--- NOTE | 2019-01-17 14:02 | NUR ---
Pt. refused the Seroquel due for 1400, pt. said it's small tab and it's nothing. Was explained on the importance and offered 3x and and pt. refused and throw the meds.
[2019-01-17 16:00] VITALS: BP 105/57
[2019-01-17 20:11] VITALS: BP 125/60
[2019-01-17] MEDS: SENNOSIDES 8.6 MG TABLET PO SCH (21:54)
[2019-01-17] MEDS: ZOLPIDEM TARTRATE 5 MG TABLET PO PRN (21:56)
[2019-01-18 08:00] VITALS: BP 129/63
[2019-01-18] MEDS: QUETIAPINE FUMARATE 25 MG TABLET PO SCH ×3 (08:11→21:30)
[2019-01-18] MEDS: GABAPENTIN 300 MG CAPSULE PO SCH ×3 (08:11→16:43)
[2019-01-18] MEDS: DIVALPROEX SODIUM 125 MG TABLET.DR PO SCH ×3 (08:11→21:30)
[2019-01-18] MEDS: LEVETIRACETAM (250 MG) 250 MG TABLET PO SCH ×2 (08:11→16:43)
[2019-01-18] MEDS: LORATADINE 10 MG TABLET PO SCH (08:11)
[2019-01-18 16:00] VITALS: BP 135/68
[2019-01-18] MEDS: ZOLPIDEM TARTRATE 5 MG TABLET PO PRN (19:17)
[2019-01-18 20:00] VITALS: BP 135/61
[2019-01-18] MEDS: SENNOSIDES 8.6 MG TABLET PO SCH (21:30)
[2019-01-19 08:00] VITALS: BP 135/89
[2019-01-19] MEDS: DIVALPROEX SODIUM 125 MG TABLET.DR PO SCH ×3 (08:46→21:28)
[2019-01-19] MEDS: GABAPENTIN 300 MG CAPSULE PO SCH ×3 (08:46→16:26)
[2019-01-19] MEDS: QUETIAPINE FUMARATE 25 MG TABLET PO SCH ×3 (08:47→21:29)
[2019-01-19] MEDS: LORATADINE 10 MG TABLET PO SCH (08:47)
[2019-01-19] MEDS: LEVETIRACETAM (250 MG) 250 MG TABLET PO SCH ×2 (08:47→16:26)
[2019-01-19 16:00] VITALS: BP 141/81
[2019-01-19 19:50] VITALS: BP 131/96
[2019-01-19] MEDS: SENNOSIDES 8.6 MG TABLET PO SCH (21:29)
[2019-01-19] MEDS: ZOLPIDEM TARTRATE 5 MG TABLET PO PRN (21:29)
[2019-01-20 08:00] VITALS: BP 126/76
[2019-01-20] MEDS: DIVALPROEX SODIUM 125 MG TABLET.DR PO SCH ×3 (08:15→21:45)
[2019-01-20] MEDS: LEVETIRACETAM (250 MG) 250 MG TABLET PO SCH ×2 (08:15→16:04)
[2019-01-20] MEDS: LORATADINE 10 MG TABLET PO SCH (08:15)
[2019-01-20] MEDS: QUETIAPINE FUMARATE 25 MG TABLET PO SCH ×3 (08:15→21:45)
[2019-01-20] MEDS: GABAPENTIN 300 MG CAPSULE PO SCH ×3 (08:15→16:04)
[2019-01-20] MEDS: HYDROCODONE/APAP 5/325MG 1 EACH TABLET PO PRN (09:08)
--- NOTE | 2019-01-20 09:09 | NUR ---
GPS RN NOTE NORCO GIVEN AT THIS TIME FOR PT COMPLAINT OF LOWER BACK PAIN 8 OUT OF 10, NO S/S OF ANY ACUTE DISTRESS NOTED, WILL MONITOR ACCORDINGLY
[2019-01-20 16:00] VITALS: BP 118/56
[2019-01-20 20:22] VITALS: BP 134/72
[2019-01-20] MEDS: SENNOSIDES 8.6 MG TABLET PO SCH (21:45)
--- NOTE | 2019-01-21 00:57 | NUR ---
GPS RN NOTE, PATIENT HAS A COMPLAINT OF A NON PRODUCTIVE CONSISTENT COUGH. PATIENT VITAL SIGNS ARE FOLLOWS, B/P 134/72, TEMP 97.9, PULSE 86, RESPIRATIONS 18, SPO2 91 - 92 % ON ROOM AIR. PATIENT ALSO HAS URINARY CULTURE RESULTS THAT RESULTED WITH ESCHERICHIA COLI IN URIN. PAGED DR SHANNON FRAZIER GROUP AND INFORMED DR ABIGAIL WHITE OF MY FINDINGS. DR ABIGAIL WHITE ORDERED TO GIVE ALBUTEROL FS 2.5MG / 3ML UD VIA NEB Q6HR PRN, IPRATROPIUM FS 0.5MG VIA NEB Q6HR PRN, AND LEVAQUIN 500 MG PO DAILY X 10 DAYS. ALL ORDERS NOTED AND CARRIED OUT WILL CONTINUE TO MONITOR THIS PATIENT WITH THE HELP OF STAFF.
[2019-01-21] MEDS ORDERED: IPRATROPIUM NEB FS 0.5 MG/2.5 ML AMPUL.NEB NEB PRN (01:00)
[2019-01-21] MEDS: ALBUTEROL FS 2.5 MG/3 ML VIAL.NEB NEB PRN ×2 (01:41→22:04)
[2019-01-21] MEDS: HYDROCODONE/APAP 5/325MG 1 EACH TABLET PO PRN ×2 (05:04→11:03)
[2019-01-21 08:00] VITALS: BP 134/76
[2019-01-21] MEDS: GABAPENTIN 300 MG CAPSULE PO SCH ×3 (08:12→17:14)
[2019-01-21] MEDS: LEVETIRACETAM (250 MG) 250 MG TABLET PO SCH ×2 (08:12→17:14)
[2019-01-21] MEDS: DIVALPROEX SODIUM 125 MG TABLET.DR PO SCH ×3 (08:12→21:29)
[2019-01-21] MEDS: LORATADINE 10 MG TABLET PO SCH (08:12)
[2019-01-21] MEDS: LEVOFLOXACIN (500MG) 500 MG TABLET PO SCH (08:13)
[2019-01-21] MEDS: QUETIAPINE FUMARATE 25 MG TABLET PO SCH ×3 (08:13→21:30)
--- NOTE | 2019-01-21 09:45 | NUR ---
gps signal apprentice: notes per secondary social studies teacher, pt to go back to [facility] today.
--- NOTE | 2019-01-21 10:45 | NUR ---
gps grab operator: notes dr. lombardi (psych) and dr. bullard (hospitalist) notified and made aware re: d'c planning today, left message to guidance secretary (emily canela). christiana (brother) notified and made aware re: d'c planning today, spoke to him over the phone. roberto escobedo notified, spoke to jaime (admin) and concern about her medications and adl's; per jaime, pt was independent with adl's. chriss (social services analyst) made aware and will f/u with jaime and dr. lombardi.
--- NOTE | 2019-01-21 11:03 | NUR ---
gps fiscal services manager: notes c/o 01/23 lower back pain, medicated with norco 1 tab po as ordered.
--- NOTE | 2019-01-21 11:15 | NUR ---
SW called [facility] ([phone]) and spoke to their coding coordinator, MARILU, who stated that the pt does not seem ready to be accepted back to their facility at this time due to the report that was given by the nurses. SW expressed that the pt is not ambulatory at this time and cannot care for herself. lactation coordinator stated that the pt would be more appropriate for a SNF and stated that she can return to their facility after she is more stable.
--- NOTE | 2019-01-21 12:15 | NUR ---
gps potato picker: notes don (brother) notified and informed him that pt might need placement per social security benefits interviewer and will update when we have placement for her.
--- NOTE | 2019-01-21 13:03 | NUR ---
DAVID faxed a referral to [facility] with attention to Audra to the fax number: [phone].
--- NOTE | 2019-01-21 13:22 | NUR ---
gps carpenter assembler: notes pt sleeping at interval after norco med earlier this morning. pt is arousable. meds held at this time. will continue to monitor.
--- NOTE | 2019-01-21 14:24 | NUR ---
RN-CO: Dr Roberson is aware that patient needs more higher level of care in ADL, and social work program coordinator is looking for a more appropriate placement other than assisted living.
--- NOTE | 2019-01-21 14:28 | NUR ---
GROUP NOTE: SW encouraged pt to attend group on this present day discussing discharge planning but pt is unable to participate in group as she is cognitively impaired and unable to engage in conversation.
[2019-01-21 16:00] VITALS: BP 124/60
[2019-01-21 20:40] VITALS: BP 104/63
[2019-01-21] MEDS: SENNOSIDES 8.6 MG TABLET PO SCH (21:30)
[2019-01-22 08:00] VITALS: BP 109/57
[2019-01-22] MEDS: DIVALPROEX SODIUM 125 MG TABLET.DR PO SCH ×2 (08:26→12:09)
[2019-01-22] MEDS: LEVETIRACETAM (250 MG) 250 MG TABLET PO SCH (08:27)
[2019-01-22] MEDS: LEVOFLOXACIN (500MG) 500 MG TABLET PO SCH (08:27)
[2019-01-22] MEDS: QUETIAPINE FUMARATE 25 MG TABLET PO SCH ×2 (08:27→14:31)
[2019-01-22] MEDS: GABAPENTIN 300 MG CAPSULE PO SCH ×2 (08:27→12:09)
[2019-01-22] MEDS: LORATADINE 10 MG TABLET PO SCH (08:28)
--- NOTE | 2019-01-22 08:54 | NUR ---
DAVID called the pts brother, Sage ([phone]), and informed him that the pt is going to be discharged to [facility] today and that she will return to [facility] from there once she is more stable.
[2019-01-22] MEDS: HYDROCODONE/APAP 5/325MG 1 EACH TABLET PO PRN (13:43)
--- NOTE | 2019-01-22 13:43 | NUR ---
RN NOTE: PATIENT COMPLAINING OF 8/10 GENERALIZED PAIN. PRN NORCO GIVEN.
--- NOTE | 2019-01-22 15:07 | NUR ---
FURNACE AND WASH EQUIPMENT OPERATOR NOTE: PATIENT IS A 73 YEAR OLD FEMALE DISCHARGED TO [facility] LOCATED AT [address] [place] [id number] . PATIENT IS IN STABLE CONDITION. COMPLIANT WITH MEDICATION MANAGEMENT AND COOPERATIVE WITH PLAN OF CARE. VSS. NO ACUTE DISTRESS NOTED. C/O PAIN; PRN GIVEN PRIOR TO DISCHARGE. PATIENT DENIES SI/HI, VAH AT THE TIME OF DISCHARGE. BEHAVIOR HAS IMPROVED. PSYCHIATRIC TREATMENT PLANS MET, MEDICAL TREATMENT PLANS DEFERRED FOR CONTINUAL MONITORING. EDUCATED PATIENT ON AFTERCARE WITH COPY PROVIDED. MEDICATIONS RECONCILED WITH DR. JASON AND DR. FRAZIER AND BOTH ARE AWARE OF DISCHARGE WITH PSYCHIATRIC DISCHARGE ORDERS. RETURNED PERSONAL BELONGINGS TO PATIENT. REPORT GIVEN TO JOSE ANTONIO CHATMAN FROM THE SNF. PATIENT REFUSED TO SIGN DISCHARGE PAPERWORK ALONG WITH REFUSING SKIN CHECK. PATIENT LEFT THE GPS UNIT VIA GURNEY AT 1500.
--- NOTE | 2019-01-22 15:22 | NUR ---
Discharge Note: Pt was discharged to [facility] (SNF) located at [address] [place] [address]; ([phone]). Pt was transported via [facility] at 2PM. Pt�s brother, Sage ([phone]), was informed of the discharge. Upon discharge, the pt appeared to be in a depressed mood and presented with a distressed affect. Pt stated that she was feeling pain in her body. Pt denied both suicidal and homicidal ideation as well as auditory and visual hallucinations. Pt will continue to be under the care of her psychiatrist, Dr. Roberson, located at [address] [facility] [place] [address]; and her boat tender, Dr. Hernandez, located at [address] [facility] [address] [address]; .
--- NOTE | 2019-01-22 15:46 | NUR ---
GROUP NOTE: SW prompted pt to attend group on this present day discussing discharge planning but pt is unable to participate in group as she is cognitively impaired and unable to engage in conversation.
[2019-01-28] MEDS ORDERED: ERGOCALCIFEROL (VITAMIN D 2) 50,000 UNIT CAPSULE PO SCH (09:00)
== END 2019-01-22 15:00 | DRG 885 ==
LOC: ER 18:51 → GPS 01-11 00:53
PROVIDERS: ADMIT Psychiatry & Neurology Psychiatry; ATTEND Internal Medicine
DX: F31.64 Bipolar disorder, current episode mixed, severe, with psychotic features (principal); F41.9 Anxiety disorder, unspecified; K70.30 Alcoholic cirrhosis of liver without ascites; M54.5 Low back pain; G89.29 Other chronic pain; K59.03 Drug induced constipation; T40.605A Adverse effect of unspecified narcotics, initial encounter; Y92.89 Other specified places as the place of occurrence of the external cause; E55.9 Vitamin D deficiency, unspecified; F03.90 Unspecified dementia, unspecified severity, without behavioral disturbance, psychotic disturbance, mood disturbance, and anxiety; G20 Parkinson's disease; F29 Unspecified psychosis not due to a substance or known physiological condition; D63.8 Anemia in other chronic diseases classified elsewhere; G40.409 Other generalized epilepsy and epileptic syndromes, not intractable, without status epilepticus; Z87.891 Personal history of nicotine dependence; J42 Unspecified chronic bronchitis; K70.40 Alcoholic hepatic failure without coma; R29.6 Repeated falls
CPT/HCPCS: 36415; 70450-TC; 76700-TC; 80048-TC; 80053-TC; 80061-TC; 80076-TC; 80164-TC; 80305; 81000-TC; 82140-TC; 82962-TC; 84450-TC; 84460-TC; 85025-TC; 87081-TC; 87086-TC; 87186-TC; G0480; J7030

== ENCOUNTER 2019-05-13 19:33 | Inpatient (IN) | payer MEDICARE ==
[~2019-05-13] VITALS: Ht 165.1 cm; Wt 78.0 kg
[~2019-05-13 19:33] MED LIST changes: +DOCU50LI PO; -DONE10TA44 PO; -DULO60CA45 PO; +HYDR-3974 PO; -HYDR-4354 PO; -OMEP20CA11 PO; -SERT100T PO
--- NOTE | 2019-05-13 19:33 | NUR ---
"BIB PRIVATE AMBULANCE FROM [facility] C/O SORE THROAT, FREQUENCY, PAINAND BURNING UPON URINATION X3 DAYS " pt aaox2-3, pt on monitor, vss ,nad noted, pending md fiore
--- NOTE | 2019-05-13 20:44 | NUR ---
urine collected and sent to lab
[2019-05-13 21:00] LABS: BASOPHILS % (AUTO) 0.2 % (0.0-2.0); EOSINOPHILS % (AUTO) 1.9 % (0.0-6.0); HEMATOCRIT 36 % (33-45); HEMOGLOBIN 12.8 g/dL (11.5-14.8); LYMPHOCYTES # (AUTO) 1.3 /CMM (0.8-4.8); LYMPHOCYTES % (AUTO) 28.1 % (20.0-44.0); MEAN CORPUSCULAR HGB CONC 35 g/dl (31.0-36.0); MEAN CORPUSCULAR VOLUME 96 fL (82-100); MONOCYTES # (AUTO) 0.3 /CMM (0.1-1.30); MONOCYTES % (AUTO) 5.9 % (2.0-12.0); NEUTROPHILS % (AUTO) 63.9 % (43.0-81.0); PLATELET COUNT (AUTO) 86 /CMM (150-450); RED BLOOD CELL COUNT(AUTO) 3.76 MIL/uL (4.0-5.2); WHITE BLOOD COUNT (AUTO) 4.7 K/uL (4.3-11.0)
[2019-05-13 21:02] LABS: BILIRUBIN,URINE SMALL (NEGATIVE); BLOOD, URINE Small Ery/uL (NEGATIVE); COLOR,URINE Yellow (YELLOW); KETONES,URINE Trace (NEGATIVE); LEUKOCYTE ESTERASE ,URINE Negative (NEGATIVE); NITRITE, URINE Positive (NEGATIVE); PROTEIN,URINE Negative (NEGATIVE); UGLUCOSE Negative (NEGATIVE)
[2019-05-13 21:07] LABS: APPEARANCE,URINE SLIGHTLY HAZY (CLEAR)
[2019-05-13 21:13] LABS: BACTERIA,URINE Many /HPF (None Seen); CALCIUM, SERUM 8.5 mg/dL (8.5-10.1); CARBON DIOXIDE 26 mmol/L (21-32); CHLORIDE 109 mmol/L (98-107); CREATININE 0.7 mg/dL (0.6-1.3); GLUCOSE 98 mg/dL (74-106); POTASSIUM 3.8 mmol/L (3.5-5.1); SODIUM SERUM 143 mmol/L (136-145); SQUAMOUS EPITHELIAL CELL,UR Rare /HPF (None Seen); UREA NITROGEN, BLOOD 20 mg/dL (7-18)
[2019-05-13 21:19] LABS: ALANINE AMINOTRANSFERASE 11 U/L (12-78); ALBUMIN 3.5 g/dL (3.4-5.0); ALKALINE PHOSPHATASE 83 U/L (46-116); ASPARTATE AMINOTRANSFERASE 19 U/L (15-37); BILIRUBIN,DIRECT 0.1 mg/dL (0.0-0.2); BILIRUBIN,TOTAL 0.4 mg/dL (0.2-1.0); TOTAL PROTEIN, SERUM 6.3 g/dL (6.4-8.2)
[2019-05-13 21:53] LABS: LYMPHOCYTES % (MANUAL) 20 % (16-48); NEUTROPHILS % (MANUAL) 80 (42-76)
[2019-05-13] MEDS ORDERED: CEFTRIAXONE 1GM BAG (ER ONLY) 1 GM/50 ML PIGGYBACK IV ONE (22:00)
--- NOTE | 2019-05-13 22:10 | NUR ---
REPORT GIVEN TO MIO BRADY FOR ZACH PT WILL BE TRANSPORTED TO 1ST FLOOR
[2019-05-13] MEDS ORDERED: CEFTRIAXONE 1GM BAG (ER ONLY) 50 ML IV ONE (22:34)
--- NOTE | 2019-05-13 22:49 | NUR ---
UNABLE TO TRANSFER PT TO [facility], BED NOT READY AT THIS TIME
--- NOTE | 2019-05-13 23:25 | NUR ---
REPORT GIVEN TO TERESITA FOR ZACH.
[2019-05-14] VITALS (7 sets, daily range): BP systolic 103–146; BP diastolic 56–69
--- NOTE | 2019-05-14 00:30 | NUR ---
PER JAVI, ROOM 117 STILL BEING CLEANED, READY IN 20 MINUTES
--- NOTE | 2019-05-14 01:09 | NUR ---
PT TRANSPORTED TO 1ST FLOOR
[2019-05-14] MEDS: IV NS 0.9% 1,000 ML IV PRN ×2 (02:35→18:16)
[2019-05-14 06:34] LABS: BASOPHILS % (AUTO) 0.3 % (0.0-2.0); EOSINOPHILS % (AUTO) 2.3 % (0.0-6.0); HEMATOCRIT 35 % (33-45); HEMOGLOBIN 12.3 g/dL (11.5-14.8); LYMPHOCYTES # (AUTO) 1.9 /CMM (0.8-4.8); LYMPHOCYTES % (AUTO) 34.2 % (20.0-44.0); MEAN CORPUSCULAR HGB CONC 35 g/dl (31.0-36.0); MEAN CORPUSCULAR VOLUME 97 fL (82-100); NEUTROPHILS # (AUTO) 2.5 /CMM (1.8-8.9); NEUTROPHILS % (AUTO) 45.2 % (43.0-81.0); PLATELET COUNT (AUTO) 64 /CMM (150-450); RED BLOOD CELL COUNT(AUTO) 3.61 MIL/uL (4.0-5.2); WHITE BLOOD COUNT (AUTO) 5.5 K/uL (4.3-11.0)
[2019-05-14 07:02] LABS: CALCIUM, SERUM 8.3 mg/dL (8.5-10.1); CREATININE 0.6 mg/dL (0.6-1.3); POTASSIUM 4.4 mmol/L (3.5-5.1)
[2019-05-14] MEDS ORDERED: DIVA-78 PO (09:10)
[2019-05-14] MEDS ORDERED: QUET25TA PO (09:10)
[2019-05-14] MEDS ORDERED: POTA10TA17 PO (09:10)
[2019-05-14] MEDS: LEVETIRACETAM (250 MG) 250 MG TABLET PO SCH ×2 (10:24→17:38)
[2019-05-14] MEDS: DIVALPROEX SODIUM 250 MG TABLET.DR PO SCH ×3 (10:24→17:38)
[2019-05-14] MEDS: QUETIAPINE FUMARATE 25 MG TABLET PO SCH ×3 (10:24→17:38)
[2019-05-14] MEDS: HYDROCODONE/APAP 5/325MG 1 EACH TABLET PO PRN (10:24)
[2019-05-14] MEDS: GABAPENTIN 300 MG CAPSULE PO SCH ×2 (13:30→17:38)
[2019-05-14] MEDS: DOXYCYCLINE HYCLATE (100 MG) 100 MG TABLET PO SCH (17:38)
[2019-05-14] MEDS: PHENAZOPYRIDINE HCL 200 MG TABLET PO SCH (17:38)
--- NOTE | 2019-05-14 19:28 | NUR ---
CASER IN CLOSING DR. FRAZIER AWARE OF LACTIC ACID. PATIENT REMAINS A/Ox2-3. AWAKE, VERBAL. ON ROOM AIR, NO ACUTE DISTRESS OR SOB. TELE ATTACHED, SINUS RHYTHM HR 70. SEEN BY PT TODAY, MOD ASSIST TO EDGE OF BED. PUREE DIET, CRUSHED MEDS. R HAND 22G INFUSING NS @75mL/HR. CALL LIGHT WITHIN REACH, SEIZURE PRECAUTIONS IN PLACE, BED ALARM ON. ENDORSED TO NOC RN FOR ZACH
--- NOTE | 2019-05-14 19:30 | NUR ---
RN NOTES PATIENT ASLEEP WELL ON BED. BREATHING EVEN AND UNLABORED ON ROOM AIR SATURATION 96%. NSR ON TELEMONITOR. AOX2-3 VERY SLEEPY NO. WARMTH TO TOUCH , AFEBRILE. DENIES PAIN, PATIENT DOESN'T WANT TO BE BOTHER AT THIS TIME. IV SITE ON RIGHT HAND G 22 RUNNING WITH NS @ 75 ML/HR INTACT AND PATENT. NO VAGINAL DISCHARGE NOTED, NO EPISODE OF SEIZURE. KEPT PT CLEAN AND DRY. CALL LIGHT KEPT WITHIN EASY REACH. WILL CONTINUE TO MONITOR.
[2019-05-14] MEDS: CEFTRIAXONE 1 G in IV D5W 50 ML IV SCH (21:28)
[2019-05-14] MEDS ORDERED: CYCLOBENZAPRINE 10 MG TABLET PO PRN (22:00)
[2019-05-15] VITALS: BP 93/44
--- NOTE | 2019-05-15 | NUR ---
RN NOTES PATIENT WOKE UP AND CHANGE DIAPER. PT IS HUNGRY AND ASKED FOR FOOD. 100% SNACK FINISHED AND BACK TO SLEEP.
[2019-05-15 04:00] VITALS: BP 120/64
--- NOTE | 2019-05-15 07:32 | NUR ---
RN NOTES PATIENT ASLEEP WELL ON BED. BREATHING EVEN AND UNLABORED IN ROOM AIR. NO SIGNIFICANT CHANGES THROUGHOUT THE SHIFT. ATE WELL. DENIES PAIN WHILE URINATING, AFEBRILE. WITH GOOD AMT OF URINE OUTPUT. IVF ONGOING NS @ 75 ML/HR . CONTINUE TO OFFER FLUIDS AND CRANBERRY JUICE. KEPT PT CLEAN AND DRY. INCONTINENT CARE RENDERED. TURNED AND REPOSITIONED Q2H AND PRN. BED LOCKED AND SECURED. CALL LIGHT KEPT WITHIN EASY REACH. ENDORSED CONTINUITY OF CARE TO AM NURSE.
--- NOTE | 2019-05-15 07:46 | NUR ---
RN AM SHIFT NOTE PATIENT AWAKE AND ALERT 3- 4 . IV PATENT AND INTACT, BED LOW TO FLOOR, CALL LIGHT WITHIN REACH , ALL NEEDS MET AT THIS TIME. MILD PAIN NOTED LEFT HIP WILL FOLLOW CURRENT ANALGESIC REGIMNEN PER MD ORDER. LAB CALLED 729 REPORT LACTIC ACID 3.1 WILL CONTACT
[2019-05-15 08:00] VITALS: BP_SYST 128; BP_SYST 145; BP_DIAS 57; BP_DIAS 71
[2019-05-15] MEDS ORDERED: POTASSIUM CHLORIDE 10 MEQ TABLET.SA PO SCH (09:00)
[2019-05-15] MEDS: LEVETIRACETAM (250 MG) 250 MG TABLET PO SCH ×2 (09:14→16:48)
[2019-05-15] MEDS: DOXYCYCLINE HYCLATE (100 MG) 100 MG TABLET PO SCH ×2 (09:14→16:48)
[2019-05-15] MEDS: DIVALPROEX SODIUM 250 MG TABLET.DR PO SCH ×3 (09:14→16:48)
[2019-05-15] MEDS: GABAPENTIN 300 MG CAPSULE PO SCH ×3 (09:14→16:48)
[2019-05-15] MEDS: PHENAZOPYRIDINE HCL 200 MG TABLET PO SCH ×2 (09:15→18:48)
[2019-05-15] MEDS: QUETIAPINE FUMARATE 25 MG TABLET PO SCH ×3 (09:15→16:48)
[2019-05-15 12:00] VITALS: BP 135/52
[2019-05-15] MEDS: IV NS 0.9% 1,000 ML IV PRN (13:15)
[2019-05-15 16:00] VITALS: BP_SYST 112; BP_SYST 130; BP_DIAS 48; BP_DIAS 62
--- NOTE | 2019-05-15 18:58 | NUR ---
RN CLOSING NOTE PATIENT ALERT AND ORITNED X2-3 CONFUSED PER FAMILY MEMBER POSSIBLY DUE TO INFECTION. RN NOTE. DR FRAZIER SAW PATIENT LACTIC ACID ELEVATED AND AWARE OF PLATLETS ON LOW SIDE. NO NEW ORDERS AT THIS TIME. POSSIBLE ABNOMAL VALUES SUSPECTED BY DR FRAZIER DUE TO LIVER CIRRHOSIS. CONTINUE TO MONITOR CONT HOSPITALIZATION AND ATB PER MD ORDER BED IN LOW POSITION, CALL LIGHT WITHIN REACH SAFTY MEASURES IN PLACE. ALL NEEDS MET AT THIS TIME.
[2019-05-15 20:00] VITALS: BP 119/51
[2019-05-15] MEDS: CEFTRIAXONE 1 G in IV D5W 50 ML IV SCH (21:58)
[2019-05-16] VITALS: BP 144/81
[2019-05-16] MEDS: HYDROCODONE/APAP 5/325MG 1 EACH TABLET PO PRN ×3 (03:21→15:53)
[2019-05-16 04:00] VITALS: BP 146/75
[2019-05-16] MEDS: IV NS 0.9% 1,000 ML IV PRN (05:04)
--- NOTE | 2019-05-16 07:15 | NUR ---
Nurse Notes: report from the night nurse Khanh Reyes RN, patient is resting in bed. IV is infusing continuously.
[2019-05-16 08:00] VITALS: BP 129/50
[2019-05-16] MEDS: DOXYCYCLINE HYCLATE (100 MG) 100 MG TABLET PO SCH ×2 (08:58→17:19)
[2019-05-16] MEDS: LEVETIRACETAM (250 MG) 250 MG TABLET PO SCH ×2 (08:59→17:19)
[2019-05-16] MEDS: QUETIAPINE FUMARATE 25 MG TABLET PO SCH ×3 (08:59→17:19)
[2019-05-16] MEDS: GABAPENTIN 300 MG CAPSULE PO SCH ×3 (08:59→17:19)
[2019-05-16] MEDS: DIVALPROEX SODIUM 250 MG TABLET.DR PO SCH ×3 (09:00→17:19)
[2019-05-16] MEDS: PHENAZOPYRIDINE HCL 200 MG TABLET PO SCH ×2 (09:01→17:19)
--- NOTE | 2019-05-16 09:39 | NUR ---
Nurse Notes: Dr Hernandez states patient will be discharge to SNF closer to her home, at [place], waiting for CM to get bed. Patient to remain on Ceftriazone IVPB for 2 more days.
[2019-05-16 12:00] VITALS: BP 115/57
[2019-05-16] MEDS ORDERED: INFLUENZA VACCINE 2019-20 0.5 ML DISP.SYRIN IM ONE (13:30)
--- NOTE | 2019-05-16 15:22 | NUR ---
Nurse Notes: report given to Papito Tate at [facility], , ambulance to arrive at 1745. patient needs 2200 dose of Ceftriaxone 1 gm, patient needs two more doses. hep lock to remain in for the IV antibiotics. pain level is 7/10, will medicate patient with [place].
--- NOTE | 2019-05-16 15:26 | NUR ---
Nurse Notes: [facility] given [facility]. patient to get two more doses Ceftriaxone 1 gm, which is due at 2200. IV is still infusing in left arm, Pain level is 7/10. will given [place] to the patient. waiting for ambulance at 1730
[2019-05-16 16:00] VITALS: BP_SYST 109; BP_SYST 123; BP_DIAS 54; BP_DIAS 61
--- NOTE | 2019-05-16 20:13 | NUR ---
Nurse Notes: ambulance is here, [facility] was called, stated has the Rocelphin IVPB in [facility] emergency kit, dose is due at 2200.
--- NOTE | 2019-05-16 20:20 | NUR ---
Discharge Note:' patient is discharge and ambulance [facility], report given to ambulance personnel, and belonging checklist was completed. Patient is in no respiratory distress. pain is much better. on room air.
== END 2019-05-16 20:00 | DRG 871 ==
LOC: ER 19:37 → TELE1 22:03
PROVIDERS: ADMIT Internal Medicine; ATTEND Internal Medicine
DX: A41.9 Sepsis, unspecified organism (principal); N17.0 Acute kidney failure with tubular necrosis; N39.0 Urinary tract infection, site not specified; G93.40 Encephalopathy, unspecified; E87.2 Acidosis; F03.90 Unspecified dementia, unspecified severity, without behavioral disturbance, psychotic disturbance, mood disturbance, and anxiety; G40.909 Epilepsy, unspecified, not intractable, without status epilepticus; Z87.891 Personal history of nicotine dependence; K70.30 Alcoholic cirrhosis of liver without ascites; M19.90 Unspecified osteoarthritis, unspecified site; Z88.8 Allergy status to other drugs, medicaments and biological substances; Z79.899 Other long term (current) drug therapy; F10.10 Alcohol abuse, uncomplicated; G89.29 Other chronic pain; K72.90 Hepatic failure, unspecified without coma; Z90.710 Acquired absence of both cervix and uterus; R29.6 Repeated falls
CPT/HCPCS: 36415; 71045-TC; 80048-TC; 80076-TC; 81000-TC; 82140-TC; 83605-TC; 83880; 84484-TC; 85025-TC; 85730-TC; 87040-TC; 87086-TC; 87186-TC; 97112-TC; 97116-TC; 97530-TC; G0378; J0696; J7030; J7060; Q2036

== ENCOUNTER 2019-10-09 10:40 | Emergency (ER) | payer MEDICARE ==
[~2019-10-09] VITALS: Ht 172.7 cm; Wt 78.5 kg
[~2019-10-09 10:40] MED LIST changes: +DIVA-78 PO; -DOCU50LI PO; -ERGO500040 PO; -FENT1PAT8 TD; -IPRA42SP NS; +POTA10TA17 PO; +QUET25TA PO
--- NOTE | 2019-10-09 10:42 | NUR ---
GRECIA AVENDAÑO FROM [facility] FOR ABDOMINAL PAIN W/ N/V/D THAT STARTED LAST NIGHT, TO ER BED 9, HOOKED TO MONITOR, CHANGED TO HOSP GOWN, WARM BLANKET PROVIDED, DR NEVILLE AT BEDSIDE
[2019-10-09] MEDS ORDERED: SENN-168 PO (10:53)
[2019-10-09] MEDS ORDERED: CALC500T52 PO (10:53)
[2019-10-09] MEDS ORDERED: CHOL100040 PO (10:53)
[2019-10-09] MEDS ORDERED: ALEN70TA6 PO (10:53)
[2019-10-09] MEDS ORDERED: IV NS 0.9% 1,000 ML BAG IV ONE (11:00)
[2019-10-09] MEDS ORDERED: ONDANSETRON HCL/PF 4 MG/2 ML VIAL ONE (11:21)
[2019-10-09] MEDS ORDERED: ONDANSETRON HCL/PF - ER 4 MG/2 ML VIAL IV ONE (11:30)
[2019-10-09 11:34] LABS: CALCIUM, SERUM 8.8 mg/dL (8.5-10.1); CREATININE 0.6 mg/dL (0.6-1.3)
[2019-10-09 11:39] LABS: ALBUMIN 3.6 g/dL (3.4-5.0); BILIRUBIN,DIRECT 0.1 mg/dL (0.0-0.2); BILIRUBIN,TOTAL 1.1 mg/dL (0.2-1.0); TOTAL PROTEIN, SERUM 6.6 g/dL (6.4-8.2)
--- NOTE | 2019-10-09 11:49 | NUR ---
URINE SAMPLE COLLECTED VIA STRAIGHT CATHETER, SENT SAMPLE TO LAB
[2019-10-09 12:29] LABS: BASOPHILS % (AUTO) 0.3 % (0.0-2.0); EOSINOPHILS % (AUTO) 1.2 % (0.0-6.0); HEMATOCRIT 39 % (33-45); HEMOGLOBIN 13.3 g/dL (11.5-14.8); LYMPHOCYTES # (AUTO) 1.4 /CMM (0.8-4.8); LYMPHOCYTES % (AUTO) 21.5 % (20.0-44.0); MEAN CORPUSCULAR HGB CONC 35 g/dl (31.0-36.0); MEAN CORPUSCULAR VOLUME 95 fL (82-100); MONOCYTES # (AUTO) 0.5 /CMM (0.1-1.30); NEUTROPHILS # (AUTO) 4.7 /CMM (1.8-8.9); PLATELET COUNT (AUTO) 90 /CMM (150-450); RED BLOOD CELL COUNT(AUTO) 4.06 MIL/uL (4.0-5.2); WHITE BLOOD COUNT (AUTO) 6.7 K/uL (4.3-11.0)
[2019-10-09 12:38] LABS: APPEARANCE,URINE Clear (CLEAR); BACTERIA,URINE Few /HPF (None Seen); BILIRUBIN,URINE SMALL (NEGATIVE); BLOOD, URINE Small Ery/uL (NEGATIVE); COLOR,URINE Yellow (YELLOW); KETONES,URINE 15 (NEGATIVE); LEUKOCYTE ESTERASE ,URINE Negative (NEGATIVE); NITRITE, URINE Negative (NEGATIVE); PROTEIN,URINE Negative (NEGATIVE); UGLUCOSE Negative (NEGATIVE)
[2019-10-09 12:39] LABS: SQUAMOUS EPITHELIAL CELL,UR Few /HPF (None Seen)
[2019-10-09 12:56] LABS: BAND % (MANUAL) 1 % (0.0-5.0); EOSINOPHILS % (MANUAL) 2 % (0-4); LYMPHOCYTES % (MANUAL) 23 % (16-48); MONOCYTES % (MANUAL) 9 % (0-11.0); NEUTROPHILS % (MANUAL) 65 (42-76)
[2019-10-09] MEDS ORDERED: IOHEXOL-300 100 ML VIAL IV ONE (13:01)
[2019-10-09] MEDS ORDERED: IV NS 0.9% 250 ML IV ONE (13:01)
--- NOTE | 2019-10-09 13:24 | NUR ---
PATIENT BACK FROM CT SCAN. PRASHANTH IVP INFILTRATED. STARTED NEW IVP AT RH 22G.
--- NOTE | 2019-10-09 14:26 | NUR ---
PT IV INFILTRATED WILL PERFORMING CT ABD/PEL WITH CONTRAST NOTIFIED RN REGARDING ISSUE READING RADIOLOGIST CALLED TO CONFIRM IV INFILTRATION AND NO CONTRAST IN EXAM RELADYED INFO TO RN JA REGARDING EXAM
--- NOTE | 2019-10-09 14:46 | NUR ---
CALLED RAINA FOR TRANSPORT TO [facility], ETA 1530.
--- NOTE | 2019-10-09 15:58 | NUR ---
Spoke to Colette bolaños [facility] for report
--- NOTE | 2019-10-09 16:07 | NUR ---
Patient discharged to [facility] [address] in stable condition. Written and verbal after care instructions given. Patient verbalizes understanding of instruction. Patient will be brought back to [facility].
[2019-10-09 16:09] VITALS: BP 156/54
== END 2019-10-09 16:10 ==
LOC: ER 10:40
DX: R10.32 Left lower quadrant pain (principal); I10 Essential (primary) hypertension; M19.90 Unspecified osteoarthritis, unspecified site; R11.2 Nausea with vomiting, unspecified; R19.7 Diarrhea, unspecified; Z88.8 Allergy status to other drugs, medicaments and biological substances
CPT/HCPCS: 36415; 71045; 74176; 80048; 80076; 81001; 83690; 85025; 93005; 96361; 96374; 99285; J2405; J7030; J7050; Q9967; 81000-TC

== ENCOUNTER 2020-02-11 16:04 | Emergency (ER) | payer MEDICARE ==
[~2020-02-11] VITALS: Ht 172.7 cm; Wt 83.0 kg
[~2020-02-11 16:04] MED LIST changes: +ALEN70TA6 PO; +CALC500T52 PO; +CHOL100040 PO; -POTA10TA17 PO; +SENN-261 PO
--- NOTE | 2020-02-11 16:10 | NUR ---
caryl, from [facility],c/o right inguinal area pain 6/10 pain scale x2 days. On room air, breathing evenly and unlabored. connected to the monitor and pulse ox. kept comfortable, will continue to monitor accordingly.
[2020-02-11] MEDS ORDERED: AMLO2.5T4 PO (16:28)
[2020-02-11] MEDS ORDERED: FLUCONAZOLE (100 MG) 100 MG TABLET PO ONE (16:30)
[2020-02-11] MEDS ORDERED: FLUCONAZOLE (100 MG) 100 MG TABLET ONE (16:30)
--- NOTE | 2020-02-11 16:35 | NUR ---
CALLED [facility] ETA [phone]
[2020-02-11 18:16] VITALS: BP 121/81
--- NOTE | 2020-02-11 18:16 | NUR ---
patient picked up by private ambulance going back to [facility] in no distress.
== END 2020-02-11 18:16 ==
LOC: ER 16:05
DX: B35.4 Tinea corporis (principal); I10 Essential (primary) hypertension; Z79.899 Other long term (current) drug therapy; Z88.8 Allergy status to other drugs, medicaments and biological substances
CPT/HCPCS: 82962-TC

== ENCOUNTER 2020-07-09 10:16 | Emergency (ER) | payer MEDICARE ==
[~2020-07-09] VITALS: Ht 172.7 cm; Wt 63.5 kg
[~2020-07-09 10:16] MED LIST changes: -ALEN70TA6 PO; +ALEN70TA69 PO; +AMLO2.5T4 PO
[2020-07-09] MEDS ORDERED: ACETAMINOPHEN 325 MG TABLET PO ONE (11:30)
[2020-07-09 12:02] LABS: BASOPHILS % (AUTO) 0.3 % (0.0-2.0); EOSINOPHILS % (AUTO) 0.6 % (0.0-6.0); HEMATOCRIT 41 % (33-45); HEMOGLOBIN 14.3 g/dL (11.5-14.8); LYMPHOCYTES # (AUTO) 0.9 /CMM (0.8-4.8); LYMPHOCYTES % (AUTO) 35.1 % (20.0-44.0); MEAN CORPUSCULAR HGB CONC 35 g/dl (31.0-36.0); MEAN CORPUSCULAR VOLUME 97 fL (82-100); MONOCYTES # (AUTO) 0.3 /CMM (0.1-1.30); MONOCYTES % (AUTO) 12.2 % (2.0-12.0); NEUTROPHILS # (AUTO) 1.4 /CMM (1.8-8.9); NEUTROPHILS % (AUTO) 51.8 % (43.0-81.0); PLATELET COUNT (AUTO) 78 /CMM (150-450); RED BLOOD CELL COUNT(AUTO) 4.27 MIL/uL (4.0-5.2); WHITE BLOOD COUNT (AUTO) 2.7 K/uL (4.3-11.0)
[2020-07-09 12:17] LABS: ALBUMIN 3.9 g/dL (3.4-5.0); BILIRUBIN,TOTAL 0.5 mg/dL (0.2-1.0); CALCIUM, SERUM 9.2 mg/dL (8.5-10.1); CREATININE 0.7 mg/dL (0.6-1.3); POTASSIUM 4.1 mmol/L (3.5-5.1); TOTAL PROTEIN, SERUM 7.2 g/dL (6.4-8.2)
[2020-07-09] MEDS ORDERED: ACETAMINOPHEN 325 MG TABLET ONE (12:30)
--- NOTE | 2020-07-09 12:37 | NUR ---
PT TAKEN TO CT.
--- NOTE | 2020-07-09 12:38 | NUR ---
TRENA FROM SNF TO ER BED 1. AAOX2. NOT IN RESP DISTRESS, BREATHING EVEN AND UNLABORED. AMBULATORY. BROUGHT ON FOR POOR ORAL INTAKE X 2 DAYS. PT ALSO IS COMPLAINING OF HEADACHE D/T A FALL SHE OBTAIN 2 DAYS AGO. NOTED BUMP ON HER R PARIETAL AREA. UNKNOWN KO. WAS AT THE [facility] FOR EVAL. ORDERS RECEIVED NOTED AND CARRIED OOUT. BLOOD DRAWN BY EMT.
[2020-07-09 12:41] LABS: EOSINOPHILS % (MANUAL) 3 % (0-4); LYMPHOCYTES % (MANUAL) 32 % (16-48); MONOCYTES % (MANUAL) 11 % (0-11.0); NEUTROPHILS % (MANUAL) 54 (42-76)
--- NOTE | 2020-07-09 14:30 | NUR ---
[facility] WITH [facility] 1545 TRIP NUMBER [id number]
--- NOTE | 2020-07-09 15:53 | NUR ---
SPOKE WITH ENDER, CAREGIVER AT THE [facility] TO INFORM THAT OT IS COMING BACK TO THE FACILITY.
--- NOTE | 2020-07-09 15:54 | NUR ---
[facility] AT BEDSIDE FOR PT TRANSPORT TO FACILITY. REPORT GIVEN. NAD NOTED.
[2020-07-09 15:56] VITALS: BP 146/78
--- NOTE | 2020-07-09 15:56 | NUR ---
PT LEFT ON GURNEY WITH 2 AMBULANCE STAFF AT BEDSIDE. PT IS IN STABLE CONDITION FOR TRANSPORT
== END 2020-07-09 15:56 | disposition home or self-care (01) ==
LOC: ER 10:22
DX: R51.9 Headache, unspecified (principal); R63.0 Anorexia; I10 Essential (primary) hypertension; G40.909 Epilepsy, unspecified, not intractable, without status epilepticus; Z68.21 Body mass index [BMI] 21.0-21.9, adult; Z88.9 Allergy status to unspecified drugs, medicaments and biological substances; Z79.899 Other long term (current) drug therapy; W18.39XA Other fall on same level, initial encounter; Y93.89 Activity, other specified; Y92.89 Other specified places as the place of occurrence of the external cause; Y99.8 Other external cause status
CPT/HCPCS: 36415; 70450-TC; 80053-TC; 85025-TC

== ENCOUNTER 2020-09-23 10:56 | Emergency (ER) | payer BC, MEDICAID, MEDICARE ==
[~2020-09-23] VITALS: Ht 175.3 cm; Wt 82.6 kg
[~2020-09-23 10:56] MED LIST changes: -ALEN70TA69 PO; +ALEN70TA80 PO
--- NOTE | 2020-09-23 11:08 | NUR ---
TRENA FROM [facility] FOR LLQ ABD PAIN X 2 DAYS -N/V/D, TO ER BED 7, HOOKED TO MONITOR, CHANGED TO HOSP GOWN, WARM BLANKET PROVIDED, PATIENT AAO x 3, NAD NOTED. AWAITING MD WHITE
--- NOTE | 2020-09-23 11:13 | NUR ---
DR SANON AT BEDSIDE
--- NOTE | 2020-09-23 11:45 | NUR ---
BETITO ashford at bedside completing EKG.
--- NOTE | 2020-09-23 11:55 | NUR ---
Manager Therapy at bedside drawing blood for labs.
[2020-09-23 11:57] LABS: BASOPHILS % (AUTO) 0.2 % (0.0-2.0); EOSINOPHILS % (AUTO) 1.6 % (0.0-6.0); HEMATOCRIT 40 % (33-45); LYMPHOCYTES # (AUTO) 1.5 /CMM (0.8-4.8); LYMPHOCYTES % (AUTO) 33.5 % (20.0-44.0); MEAN CORPUSCULAR HGB CONC 35 g/dl (31.0-36.0); MEAN CORPUSCULAR VOLUME 98 fL (82-100); MONOCYTES # (AUTO) 0.3 /CMM (0.1-1.30); MONOCYTES % (AUTO) 6.1 % (2.0-12.0); NEUTROPHILS # (AUTO) 2.5 /CMM (1.8-8.9); NEUTROPHILS % (AUTO) 58.6 % (43.0-81.0); PLATELET COUNT (AUTO) 83 /CMM (150-450); RED BLOOD CELL COUNT(AUTO) 4.11 MIL/uL (4.0-5.2); WHITE BLOOD COUNT (AUTO) 4.3 K/uL (4.3-11.0)
[2020-09-23 12:05] LABS: CALCIUM, SERUM 8.9 mg/dL (8.5-10.1); CREATININE 0.7 mg/dL (0.6-1.3); POTASSIUM 4.3 mmol/L (3.5-5.1)
[2020-09-23 12:11] LABS: ALBUMIN 3.7 g/dL (3.4-5.0); BILIRUBIN,DIRECT 0.1 mg/dL (0.0-0.2); BILIRUBIN,TOTAL 0.6 mg/dL (0.2-1.0); TOTAL PROTEIN, SERUM 6.7 g/dL (6.4-8.2)
[2020-09-23] MEDS ORDERED: MORPHINE SULFATE INJ 4 MG/ML DISP.SYRIN ONE (12:21)
[2020-09-23] MEDS ORDERED: ONDANSETRON HCL/PF 4 MG/2 ML VIAL ONE (12:21)
[2020-09-23] MEDS: MORPHINE SULFATE INJ 2 MG/ML DISP.SYRIN IV ONE (12:30)
[2020-09-23] MEDS: ONDANSETRON HCL/PF 4 MG/2 ML VIAL IVP ONE (12:30)
[2020-09-23] MEDS: IV NS 0.9% 1,000 ML BAG IV ONE (12:30)
--- NOTE | 2020-09-23 12:30 | NUR ---
MEDS ADMINISTERED. PT TOLERATED WELL.
--- NOTE | 2020-09-23 12:56 | NUR ---
CALLED [facility] [phone] CT IS BEING READ.
[2020-09-23 12:59] LABS: EOSINOPHILS % (MANUAL) 1 % (0-4); LYMPHOCYTES % (MANUAL) 36 % (16-48); MONOCYTES % (MANUAL) 10 % (0-11.0); NEUTROPHILS % (MANUAL) 53 (42-76)
[2020-09-23] MEDS ORDERED: POLY17PO4 PO (13:08)
--- NOTE | 2020-09-23 16:05 | NUR ---
Jerrell gonzalze in EDM - 09/23/20 at 1631 by ROSE Report given to Ness at [facility] (pt's residence). Pt discharged in stable condition to private ambulance co. who will transport her back to her residence.
--- NOTE | 2020-09-23 16:31 | NUR ---
Pt discharged in stable condition to private ambulance co. who will transport her back to her residence. Discharge instructions provided to pt regarding follow up care as outpatient, as well as meds prescribed to take at home. Pt verbalized understanding. Report given to Ness at [facility] (pt's residence).
[2020-09-23 16:58] VITALS: BP 147/76
== END 2020-09-23 16:07 | disposition home or self-care (01) ==
LOC: ER 11:00
DX: K44.9 Diaphragmatic hernia without obstruction or gangrene (principal); K59.00 Constipation, unspecified; F32.9 Major depressive disorder, single episode, unspecified; G40.909 Epilepsy, unspecified, not intractable, without status epilepticus; I10 Essential (primary) hypertension; Z88.8 Allergy status to other drugs, medicaments and biological substances; Z79.899 Other long term (current) drug therapy
CPT/HCPCS: 71045; 74176; 80048; 80076; 83690; 85007; 85025; 87081; 93005; 96361; 96374; 96375; 99285; J2270; J2405; J7030; 36415